=== PATIENT | female | born 2000 | race Caucasian/White ===

== ENCOUNTER 2020-10-01 16:50 | Outpatient (CLI) | payer MEDICAID | END 2020-10-01 16:51 | disposition critical access hospital (66) | LOC: EMS 16:50 | DX: R42 Dizziness and giddiness (principal) | CPT/HCPCS: A0425; A0429; A0999 ==

== ENCOUNTER 2020-10-01 17:18 | Emergency (ER) | payer MEDICAID ==
[2020-10-01] MEDS ORDERED: SODIUM CHLORIDE 0.9% 1,000 ML IV STA (17:27)
[2020-10-01 17:40] LABS: BASOPHILS # (AUTO) 0.1 10^3/uL (0.0-0.1); BASOPHILS % (AUTO) 0.8 %; EOSINOPHILS % (AUTO) 0.3 %; HCT - HEMATOCRIT 34.1 % (37.0-47.0); HGB - HEMOGLOBIN 11.2 g/dL (12.0-16.0); LYMPHOCYTES # (AUTO) 1.6 10^3/uL (1.5-3.5); MEAN CORPUSCULAR HGB CONC 32.8 g/dL (32.0-36.0); MEAN CORPUSCULAR VOLUME 79.3 fL (81.0-99.0); MEAN PLATELET VOLUME 9.3 fL (7.9-10.8); MONOCYTES # (AUTO) 0.5 10^3/uL (0.0-1.0); MONOCYTES % (AUTO) 8.2 %; NEUTROPHILS % (AUTO) 64.7 %; PLT - PLATELET COUNT 238 10^3/uL (130-450); RED CELL DISTRIBUTION WIDTH 14.1 % (12.0-15.0); WHITE BLOOD COUNT 6.2 x10^3/uL (4.8-10.8)
[2020-10-01] MEDS ORDERED: ONDANSETRON 4 MG/2 ML VIAL IVP STA (17:50)
--- NOTE | 2020-10-01 17:50 | ED Physician Documentation ---
History of Present Illness - Stated complaint Stated Complaint: NAUSEA/VOMITING - Chief complaint Chief Complaint: General - Additonal information Additional information: 20-year-old female presents the emergency department for evaluation of generalized weakness uncontrolled vomiting feeling lightheaded and dizzy. Symptoms began about 3 days ago and she has been unable to keep any food or liquids down. No diarrhea. She is reporting upper abdominal pain. Denies hematemesis melena or hematochezia. She has no history of surgery on her abdomen. Denies possibility of . Past medical history psychiatric disorder Meds Lamictal 200 mg daily Review of Systems Constitutional: reports: Chills, Myalgias. denies: Fever Eyes: denies: Loss of vision, Decreased vision Ears: reports: Loss of hearing Nose: reports: Reviewed and negative Throat: reports: Reviewed and negative Cardiac: denies: Chest pain / pressure, Palpitations, Pedal edema, Calf pain Respiratory: denies: Dyspnea, Cough GI: reports: Abdominal Pain, Nausea, Vomiting. denies: Constipation, Diarrhea, Hematemesis, Bloody / black stool : denies: Dysuria, Frequency, Hesitancy Skin: denies: Rash, Lesions Musculoskeletal: reports: Reviewed and negative Neurologic: reports: Reviewed and negative PD PAST MEDICAL HISTORY - Present Medications Home Medications: Ambulatory Orders Medication Instructions Recorded Confirmed Omeprazole [PriLOSEC] 20 mg PO DAILY 14 Days #14 10/01/20 Ondansetron HCl [Zofran] 4 mg PO TID PRN #15 tab 10/01/20 - Allergies Allergies/Adverse Reactions: Allergies Allergy/AdvReac Type Severity Reaction Status Date / Time No Known Drug Allergies Allergy Verified 10/01/20 17:25 PD ED PE EXPANDED - General General: Alert, No acute distress, Well developed/nourished - Neck Neck: Supple w/out meningeal sx. No: Adenopathy - Cardiac Cardiac: Regular Rate, Radial strong equal, Pedal strong equal, Cap refill < 2 sec - Respiratory Respiratory: No: Distress, Labored - Abdomen Abdomen: Normal Bowel sounds, Tender to palpation, Epigastric (General tenderness to the epigastrium without guarding or rebound. Negative Kirkpatrick's, negative McBurney's.) - Back Back: Normal exam - Derm Derm: Normal color, Warm and dry - Extremities Extremities: Normal. No: Deformity, Tenderness - Neuro Neuro: Alert and Oriented X 3, CNII-XII intact, Normal gait, Normal finger nose, Normal speech. No: Confused - GCS Eye Opening: Spontaneous Motor: Obeys Commands Verbal: Oriented Total: 15 Results - Vitals Vitals: Vital Signs - 24 hr 10/01/20 10/01/20 17:19 18:31 Temperature 36.9 C Heart Rate 66 67 Respiratory 16 18 Rate Blood Pressure 116/69 110/90 H O2 Saturation 98 100 Oxygen O2 Source Room air - Labs Labs: Laboratory Tests 10/01/20 10/01/20 10/01/20 17:35 17:35 17:48 WBC 6.2 RBC 4.30 Hgb 11.2 L Hct 34.1 L MCV 79.3 L MCH 26.0 L MCHC 32.8 RDW 14.1 Plt Count 238 MPV 9.3 Neut # (Auto) 4.0 Lymph # (Auto) 1.6 [place] # (Auto) 0.5 Eos # (Auto) 0.0 Baso # (Auto) 0.1 Absolute Nucleated RBC 0.00 Nucleated RBC % 0.0 Sodium 138 Potassium 3.6 Chloride 106 Carbon Dioxide 20 L Anion Gap 12.0 BUN 10 Creatinine 0.7 Estimated GFR (MDRD) 105 Glucose 91 Calcium 8.8 Total Bilirubin 1.0 AST 16 ALT 11 Alkaline Phosphatase 20 L Total Protein 6.4 L Albumin 4.1 Globulin 2.3 Albumin/Globulin Ratio 1.8 Lipase 27 Urine Color YELLOW Urine Clarity CLEAR Urine pH 6.5 Ur Specific [place] 1.020 Urine Protein NEGATIVE Urine Glucose (UA) NEGATIVE Urine Ketones 15 H Urine Occult Blood NEGATIVE Urine Nitrite NEGATIVE Urine Bilirubin NEGATIVE Urine Urobilinogen 0.2 (NORMAL) Ur Leukocyte Esterase NEGATIVE Ur Microscopic Review NOT INDICATED Urine Culture Comments NOT INDICATED Urine HCG, Qual NEGATIVE Urine Opiates Screen NEGATIVE Ur Oxycodone Screen NEGATIVE Urine Methadone Screen NEGATIVE Ur Propoxyphene Screen NEGATIVE Ur Barbiturates Screen NEGATIVE Ur Tricyclics Screen NEGATIVE Ur Phencyclidine Scrn NEGATIVE Ur Amphetamine Screen NEGATIVE U Methamphetamines Scrn NEGATIVE U Benzodiazepines Scrn NEGATIVE Urine Cocaine Screen NEGATIVE U Cannabinoids Screen NEGATIVE PD MEDICAL DECISION MAKING - ED course Complexity details: reviewed results, re-evaluated patient, considered differential, d/w patient ED course: 20-year-old female presents emergency department with 3 days of uncontrolled vomiting presented with upper epigastric pain feeling lightheaded weak and dizzy. Screening labs showed no acute abnormalities. Urine showed no signs of infections. On exam she had tenderness in the epigastrium without guarding or rebound. Negative Kirkpatrick's Kirkpatrick's negative McBurney's. Her symptoms markedly improved following the administration of IV fluids and Zofran. She was able to sip her bottle of water at the bedside. I did give her Maalox as well as lidocaine which fully abated the abdominal pain. Thus I suspect that a gastritis is contributing. We discussed risks the benefits of CT imaging to rule out an occult surgical process such as acute appendicitis but it is felt less likely at this time and we decided against imaging. Patient will be discharged with prescription for omeprazole and Zofran. Advise clear liquid and brat diet. Return precautions discussed for worsening symptoms. Departure - Departure Disposition: Home, Self Care Clinical Impression: Epigastric abdominal pain Nausea and vomiting Qualifiers: Vomiting type: unspecified Vomiting Intractability: non-intractable Qualified Code(s): R11.2 - Nausea with vomiting, unspecified Condition: Stable Record reviewed to determine appropriate education?: Yes Instructions: ED Nausea Vomiting Ch Follow-Up: JAMES LIN DO [Primary Care Provider] - Prescriptions: Omeprazole [PriLOSEC] 20 mg PO DAILY 14 Days #14 Ondansetron HCl [Zofran] 4 mg PO TID PRN #15 tab PRN Reason: Nausea / Vomiting Comments: Normal you are seen in the emergency department today for uncontrolled nausea and vomiting for the last few days. This caused you to become dehydrated weak and dizzy. Your screening labs did not show any worrisome findings. We did give you IV fluids as well as nausea medicine in the emergency department which markedly improved your symptoms. You did report upper abdominal pain and I suspect that this is gastritis or stomach inflammation from vomiting. I would like you to fill the medication for the Zofran. This is a nausea medicine. Take 2-3 times a day as needed for nausea. Sip clear liquids for the next 24 hours then slowly advance your diet to simple foods once you are keeping foods and liquids down. I do recommend that you take omeprazole once a day for the next 2 weeks to help with the stomach inflammation. Discussed this ED visit with your primary care provider. Return to the ER for fevers, uncontrolled vomiting worsening pain
[2020-10-01 17:54] LABS: MUDS CUTOFF CONCENTRATIONS CUTOFF CONC BELOW:
[2020-10-01 18:01] LABS: BILIRUBIN,URINE NEGATIVE (NEGATIVE); GLUCOSE, URINE (UA) NEGATIVE (NEGATIVE); KETONES,URINE (UA) 15 mg/dL (NEGATIVE); LEUKOCYTE ESTERASE, URINE NEGATIVE (NEGATIVE); NITRITE,URINE NEGATIVE (NEGATIVE); OCCULT BLOOD,URINE NEGATIVE (NEGATIVE); PH,URINE 6.5 PH (5.0-7.5); PROTEIN,URINE NEGATIVE (NEGATIVE); UROBILINOGEN,URINE 0.2 (NORMAL) E.U./dL (NORMAL)
[2020-10-01 18:02] LABS: CLARITY,URINE CLEAR (CLEAR); HCG UR QUAL NEGATIVE
[2020-10-01 18:09] LABS: AMPHETAMINE SCREEN,URINE NEGATIVE (NEGATIVE); BARBITURATE SCREEN,UR NEGATIVE (NEGATIVE); BENZODIAZEPINES SCREEN, URINE NEGATIVE (NEGATIVE); COCAINE SCREEN URINE NEGATIVE (NEGATIVE); METHADONE SCREEN, URINE NEGATIVE (NEGATIVE); METHAMPHETAMINES SCREEN, URINE NEGATIVE (NEGATIVE); OPIATE SCREEN, URINE NEGATIVE (NEGATIVE); OXYCODONE SCREEN, URINE NEGATIVE (NEGATIVE); PROPOXYPHENE SCREEN, URINE NEGATIVE (NEGATIVE); THC CANNABINOID SCREEN, URINE NEGATIVE (NEGATIVE); TRICYCLIC ANTIDEPRESSANT,URINE NEGATIVE (NEGATIVE)
[2020-10-01 18:09] LABS: ALBUMIN 4.1 g/dL (3.2-5.5); ALBUMIN/GLOBULIN RATIO 1.8 (1.0-2.2); CALCIUM 8.8 mg/dL (8.5-10.3); CREATININE 0.7 mg/dL (0.4-1.0); POTASSIUM 3.6 mmol/L (3.5-5.0); TOTAL PROTEIN 6.4 g/dL (6.7-8.2)
[2020-10-01] MEDS ORDERED: LIDOCAINE VISCOUS 2% 15 ML UDC MM STA (18:16)
[2020-10-01] MEDS ORDERED: MAG HYDROX/AL HYDROX/SIMETH 30 ML UDC PO STA (18:16)
[2020-10-01 19:30] VITALS: BP 115/76
== END 2020-10-01 19:30 | disposition home or self-care (01) ==
LOC: ED 17:18
DX: R10.13 Epigastric pain (principal); R11.2 Nausea with vomiting, unspecified
CPT/HCPCS: 36415; 80053; 80306; 81003; 81025; 83690; 85025; 96374; 99284; A9270; 81001; 87086